=== PATIENT | male | born 1970 | race Caucasian/White ===

== ENCOUNTER 2020-03-21 11:29 | Inpatient (IN) | payer OTHER ==
[2020-03-21] MEDS ORDERED: METHOCARBAMOL 500 MG TABLET PO PRN (16:40)
[2020-03-21] MEDS ORDERED: MAG HYDROX/AL HYDROX/SIMETH 30 ML UNIT-DOSE CUP PO PRN (16:40)
[2020-03-21] MEDS ORDERED: cloNIDine HCL 0.1 MG TABLET PO PRN (16:40)
[2020-03-21] MEDS ORDERED: BISMUTH SUBSALICYLATE 524 MG/30 ML UD PO PRN (16:40)
[2020-03-21] MEDS ORDERED: ONDANSETRON *ODT* 4 MG TABLET SL PRN (16:40)
[2020-03-21] MEDS ORDERED: IBUPROFEN 400 MG TABLET (FP) PO PRN (16:40)
[2020-03-21] MEDS ORDERED: ACETAMINOPHEN 325 MG TABLET (FP) PO PRN ×2 (16:40)
[2020-03-21] MEDS ORDERED: MAGNESIUM CITRATE 300 ML BOTTLE PO PRN (16:40)
[2020-03-21] MEDS ORDERED: MENTHOL/PHENOL 1 EACH UD MM PRN (16:40)
[2020-03-21] MEDS ORDERED: NICOTINE POLACRILEX 2 MG GUM BUC PRN (16:40)
[2020-03-21] MEDS ORDERED: MAGNESIUM HYDROX 2400MG/30ML ORAL SUSPENSION 30 ML CUP PO PRN (16:40)
[2020-03-21] MEDS ORDERED: METHADONE HCL 10 MG TABLET (FOR DETOX USE ONLY) PO ONE (17:00)
[2020-03-21 17:57] VITALS: BMI 22.7
[2020-03-21] MEDS: hydrOXYzine PAMOATE 25 MG CAPSULE (FP) PO SCH ×2 (19:27→22:17)
[2020-03-21] MEDS: MELATONIN 5 MG TABLETS PO SCH (22:17)
[2020-03-21] MEDS: TICAGRELOR 90 MG TABLET PO SCH (22:17)
[2020-03-21] MEDS: THIAMINE HCL 100 MG TABLET (FP) PO SCH (22:17)
[2020-03-21] MEDS: CARVEDILOL 6.25 MG TABLET (FP) PO SCH (22:17)
[2020-03-21] MEDS: ATORVASTATIN CA 80 MG TABLET (FP) PO SCH (22:17)
[2020-03-22] MEDS: hydrOXYzine PAMOATE 25 MG CAPSULE (FP) PO SCH ×5 (05:23→22:43)
[2020-03-22] MEDS: PATIENT'S OWN MEDICATION (NON-FORMULARY) (Alogliptin Benzoate [Alogliptin] 25 MG Tablet) PO SCH (06:21)
[2020-03-22] MEDS: ERTUGLIFLOZIN PIDOLATE 15 MG PO SCH (06:21)
[2020-03-22] MEDS: ACARBOSE 100 MG PO SCH ×3 (06:21→18:14)
[2020-03-22] MEDS ORDERED: glipiZIDE 5 MG TABLET (FP) ONE (06:28)
[2020-03-22] MEDS: glipiZIDE 10 MG TABLET (FP) PO SCH ×2 (06:31→18:14)
[2020-03-22] MEDS ORDERED: METHADONE HCL 5 MG TABLET (FOR DETOX USE ONLY) ONE (09:16)
[2020-03-22] MEDS ORDERED: METHADONE HCL 10 MG TABLET (FOR DETOX USE ONLY) ONE (09:17)
[2020-03-22] MEDS ORDERED: METHADONE (DETOX) 20 MG, METHADONE (DETOX) 5 MG PO ONE (10:00)
[2020-03-22 10:30] LABS: HEMATOCRIT 46.7 % (35.4-49); HEMOGLOBIN 15.5 GM/dL (11.7-16.9); MCH 27.4 pg (25.7-33.7); MCHC 33.3 g/dl (32.0-35.9); MEAN CELL VOLUME 82.3 fl (80-96); MEAN PLT VOLUME 8.5 fl (7.5-11.1); PLATELET COUNT 325 K/MM3 (134-434); RBC 5.68 M/mm3 (4.00-5.60); WHITE BLOOD COUNT 8.2 K/mm3 (4.0-10.0)
[2020-03-22] MEDS: LISINOPRIL 5 MG TABLET PO SCH (10:51)
[2020-03-22] MEDS: CARVEDILOL 6.25 MG TABLET (FP) PO SCH ×2 (10:51→22:43)
[2020-03-22] MEDS: ASPIRIN COATED 81 MG TABLET.EC PO SCH (10:51)
[2020-03-22] MEDS: SPIRONOLACTONE 25 MG TABLET PO SCH (10:51)
[2020-03-22] MEDS: PRENATAL VITAMINS W/ FOLIC ACID TABLET (FP) PO SCH (10:51)
[2020-03-22 11:00] LABS: CALCIUM 9.6 mg/dL (8.5-10.1)
[2020-03-22 11:01] LABS: BLOOD UREA NITROGEN 10.8 mg/dL (7-18)
[2020-03-22 11:03] LABS: CREATININE 0.8 mg/dL (0.55-1.3)
[2020-03-22 11:05] LABS: TOT PROT 7.3 g/dl (6.4-8.2)
[2020-03-22] MEDS: TICAGRELOR 90 MG TABLET PO SCH ×2 (11:26→22:42)
[2020-03-22] MEDS: MELATONIN 5 MG TABLETS PO SCH (22:43)
[2020-03-22] MEDS: ATORVASTATIN CA 80 MG TABLET (FP) PO SCH (22:43)
[2020-03-22] MEDS: THIAMINE HCL 100 MG TABLET (FP) PO SCH (22:43)
[2020-03-23] MEDS: hydrOXYzine PAMOATE 25 MG CAPSULE (FP) PO SCH ×2 (05:23→10:16)
[2020-03-23] MEDS: ERTUGLIFLOZIN PIDOLATE 15 MG PO SCH (07:13)
[2020-03-23] MEDS: PATIENT'S OWN MEDICATION (NON-FORMULARY) (Alogliptin Benzoate [Alogliptin] 25 MG Tablet) PO SCH (07:13)
[2020-03-23] MEDS: ACARBOSE 100 MG PO SCH ×2 (07:14→10:17)
[2020-03-23 09:27] VITALS: BP 114/72; PULSE 94; TEMP 97.7
[2020-03-23] MEDS ORDERED: METHADONE HCL 10 MG TABLET (FOR DETOX USE ONLY) PO ONE (10:00)
[2020-03-23] MEDS: CARVEDILOL 6.25 MG TABLET (FP) PO SCH (10:15)
[2020-03-23] MEDS: LISINOPRIL 5 MG TABLET PO SCH (10:15)
[2020-03-23] MEDS: SPIRONOLACTONE 25 MG TABLET PO SCH (10:15)
[2020-03-23] MEDS: PRENATAL VITAMINS W/ FOLIC ACID TABLET (FP) PO SCH (10:16)
[2020-03-23] MEDS: ASPIRIN COATED 81 MG TABLET.EC PO SCH (10:16)
[2020-03-23] MEDS: TICAGRELOR 90 MG TABLET PO SCH (10:18)
[2020-03-24] MEDS ORDERED: METHADONE (DETOX) 10 MG, METHADONE (DETOX) 5 MG PO ONE (10:00)
[2020-03-25] MEDS ORDERED: METHADONE HCL 10 MG TABLET (FOR DETOX USE ONLY) PO ONE (10:00)
[2020-03-26] MEDS ORDERED: METHADONE HCL 5 MG TABLET (FOR DETOX USE ONLY) PO ONE (06:00)
== END 2020-03-23 12:55 | disposition left against medical advice (07) | DRG 770 ==
LOC: YASAS 11:29 → Y6N 16:46
PROVIDERS: ADMIT Allergy & Immunology; ATTEND Allergy & Immunology
PROC: HZ2ZZZZ Detoxification Services for Substance Abuse Treatment (ICD-10-PCS; principal; 2020-03-21)
DX: F11.23 Opioid dependence with withdrawal (principal); F10.20 Alcohol dependence, uncomplicated; F17.210 Nicotine dependence, cigarettes, uncomplicated; F19.24 Other psychoactive substance dependence with psychoactive substance-induced mood disorder; I25.10 Atherosclerotic heart disease of native coronary artery without angina pectoris; I10 Essential (primary) hypertension; I25.2 Old myocardial infarction; E11.9 Type 2 diabetes mellitus without complications; Z79.4 Long term (current) use of insulin; R63.4 Abnormal weight loss; Z68.22 Body mass index [BMI] 22.0-22.9, adult
CPT/HCPCS: 36415; 80053; 82962; 85027; 86780; 93005; 93010; C9803; U0003